=== PATIENT | female | born 1990 | race Two or more races ===

== ENCOUNTER 2024-10-22 09:59 | Emergency (ER) | payer MEDICAID ==
[~2024-10-22] VITALS: Ht 152.4 cm; Wt 81.6 kg
[2024-10-22 10:25] VITALS: TEMP 98.1
[2024-10-22 10:57] LABS: BASOPHILS % (AUTO) 0.4 % (0.0-2.0); EOSINOPHILS # (AUTO) 0.2 K/uL (0.0-0.7); EOSINOPHILS % (AUTO) 2.4 % (0.0-6.0); HEMATOCRIT 36 % (33-45); HEMOGLOBIN 11.9 g/dL (11.5-14.8); LYMPHOCYTES # (AUTO) 1.4 K/uL (0.8-4.8); LYMPHOCYTES % (AUTO) 18.6 % (20.0-44.0); MEAN CORPUSCULAR HEMOGLOBIN 29 PG (26.0-33.0); MEAN CORPUSCULAR HGB CONC 33 g/dl (31.0-36.0); MEAN CORPUSCULAR VOLUME 87 fL (82-100); MONOCYTES # (AUTO) 0.7 K/uL (0.1-1.30); MONOCYTES % (AUTO) 9.1 % (2.0-12.0); NEUTROPHILS # (AUTO) 5.1 K/uL (1.8-8.9); NEUTROPHILS % (AUTO) 69.5 % (43.0-81.0); PLATELET COUNT (AUTO) 274 K/uL (150-450); RED BLOOD CELL COUNT(AUTO) 4.12 MIL/uL (4.0-5.2); RED CELL DISTRIBUTION WIDTH 14.1 % (11.5-15.0); WHITE BLOOD COUNT (AUTO) 7.3 K/uL (4.3-11.0)
[2024-10-22] MEDS: IV NS 0.9% 1,000 ML BAG IV ONE (11:00)
[2024-10-22 11:09] LABS: INR 1.04 (0.91-1.10); PARTIAL THROMBOPLASTIN TIME 24.4 SEC (24.3-34.3); PROTHROMBIN TIME 10.7 SECS (9.2-11.1)
[2024-10-22 11:10] LABS: CALCIUM, SERUM 8.7 mg/dL (8.5-10.1); CREATININE 0.8 mg/dL (0.6-1.3); POTASSIUM 3.9 mmol/L (3.5-5.1)
[2024-10-22 11:16] LABS: ALBUMIN 3.5 g/dL (3.4-5.0); BILIRUBIN,DIRECT 0.1 mg/dL (0.0-0.2); BILIRUBIN,TOTAL 0.5 mg/dL (0.2-1.0); TOTAL PROTEIN, SERUM 7.3 g/dL (6.4-8.2)
[2024-10-22 12:09] LABS: APPEARANCE,URINE CLEAR (CLEAR); BILIRUBIN,URINE Negative (NEGATIVE); BLOOD, URINE Negative Ery/uL (NEGATIVE); COLOR,URINE YELLOW (YELLOW); KETONES,URINE Trace mg/dL (NEGATIVE); LEUKOCYTE ESTERASE ,URINE Negative (NEGATIVE); PH,URINE 7.5 (5.0-8.0); PROTEIN,URINE Trace mg/dl (NEGATIVE); UGLUCOSE Negative (NEGATIVE); UROBILINOGEN,URINE 0.2 EU/dL (0.2)
[2024-10-22 12:11] LABS: NITRITE, URINE NEGATIVE (NEGATIVE)
[2024-10-22 12:16] LABS: ADD URINE CULTURE NO; BACTERIA,URINE Rare /HPF (None Seen); RBC,URINE 0-2 /HPF (0-2); SQUAMOUS EPITHELIAL CELL,UR Many /HPF (None Seen); WBC,URINE 0-2 /HPF (0-3)
[2024-10-22 12:17] LABS: MUCUS,URINE Moderate /LPF (None Seen)
[2024-10-22] MEDS ORDERED: PANT40TA2 PO (12:24)
[2024-10-22 13:10] VITALS: BP 115/76; O2SAT 98
== END 2024-10-22 13:00 | disposition home or self-care (01) ==
LOC: ER 10:06
DX: R10.32 Left lower quadrant pain (principal); R10.13 Epigastric pain; Z87.19 Personal history of other diseases of the digestive system
CPT/HCPCS: 99285; 74176; 96360; 71045; 85025; 80048; 83690; 80076; 84703; 81001; 36415; 85730; J7030

== ENCOUNTER 2024-12-07 19:16 | Emergency (ER) | payer MEDICAID, OTHER ==
[~2024-12-07] VITALS: Ht 154.9 cm; Wt 86.2 kg
[~2024-12-07 19:16] MED LIST: PANT40TA2 PO
[2024-12-07] MEDS ORDERED: ACETAMINOPHEN ES 500 MG TABLET ONE (20:37)
[2024-12-07] MEDS ORDERED: METHOCARBAMOL (500MG) 500 MG TABLET ONE (20:37)
[2024-12-07] MEDS: METHOCARBAMOL (750MG) 750 MG TABLET PO SCH (20:41)
[2024-12-07] MEDS: ACETAMINOPHEN ES 500 MG TABLET PO ONE (20:41)
[2024-12-07] MEDS ORDERED: LIDO30AD10 TP (21:01)
[2024-12-07] MEDS ORDERED: ACET325T53 PO (21:01)
[2024-12-07] MEDS ORDERED: IBUP-76 PO (21:01)
[2024-12-07] MEDS ORDERED: PRED20TA PO (21:01)
[2024-12-07 21:05] LABS: PREGNANCY TEST URINE QUAL NEGATIVE (NEGATIVE)
[2024-12-07] MEDS ORDERED: KETOROLAC TROMETHAMINE INJ 30 MG/ML VIAL ONE (21:09)
[2024-12-07] MEDS: KETOROLAC TROMETHAMINE INJ 30 MG/ML VIAL IM ONE (21:16)
[2024-12-07 21:33] VITALS: BP 119/62; TEMP 98; O2SAT 99
== END 2024-12-07 21:33 | disposition home or self-care (01) ==
LOC: ER 19:25
DX: M54.41 Lumbago with sciatica, right side (principal); F17.200 Nicotine dependence, unspecified, uncomplicated; Z79.899 Other long term (current) drug therapy; Z79.52 Long term (current) use of systemic steroids
CPT/HCPCS: 99283; 96372; 84703; J1885

== ENCOUNTER 2025-03-16 05:43 | Emergency (ER) | payer OTHER ==
[~2025-03-16] VITALS: Ht 152.4 cm; Wt 86.2 kg
[~2025-03-16 05:43] MED LIST changes: +ACET325T53 PO; +IBUP-76 PO; +LIDO30AD10 TP; +PRED20TA PO
[2025-03-16] MEDS: IV NS 0.9% 1,000 ML BAG IV ONE (06:26)
[2025-03-16] MEDS ORDERED: ONDANSETRON HCL/PF 4 MG/2 ML VIAL ONE (06:30)
[2025-03-16] MEDS ORDERED: MORPHINE SULFATE INJ 2 MG/ML DISP.SYRIN ONE (06:30)
[2025-03-16] MEDS ORDERED: FAMOTIDINE/PF INJ 20 MG/2 ML VIAL IV ONE (06:31)
[2025-03-16 06:32] LABS: PLATELET COUNT (AUTO) 265 K/uL (150-450); RED BLOOD CELL COUNT(AUTO) 4.31 MIL/uL (4.0-5.2); RED CELL DISTRIBUTION WIDTH 14.1 % (11.5-15.0); WHITE BLOOD COUNT (AUTO) 15.3 K/uL (4.3-11.0)
[2025-03-16 06:35] LABS: APPEARANCE,URINE SLIGHTLY CLOUDY (CLEAR); BLOOD, URINE 2+ Ery/uL (NEGATIVE); LEUKOCYTE ESTERASE ,URINE 1+ (NEGATIVE); NITRITE, URINE NEGATIVE (NEGATIVE); UGLUCOSE 3+ mg/dL (NEGATIVE)
[2025-03-16 06:36] LABS: PREGNANCY TEST URINE QUAL NEGATIVE (NEGATIVE)
[2025-03-16] MEDS: MORPHINE SULFATE INJ 2 MG/ML DISP.SYRIN IV ONE (06:38)
[2025-03-16] MEDS: FAMOTIDINE/PF INJ 20 MG/2 ML VIAL IV ONE (06:38)
[2025-03-16] MEDS: ONDANSETRON HCL/PF 4 MG/2 ML VIAL IVP ONE (06:38)
[2025-03-16 06:39] LABS: CALCIUM, SERUM 9.5 mg/dL (8.5-10.1); CREATININE 0.8 mg/dL (0.6-1.3); SODIUM SERUM 138.0 mmol/L (136-145); UREA NITROGEN, BLOOD 9.0 mg/dL (7-18)
[2025-03-16 06:45] LABS: ASPARTATE AMINOTRANSFERASE 12.0 U/L (15-37); TOTAL PROTEIN, SERUM 8.1 g/dL (6.4-8.2)
[2025-03-16 06:47] LABS: ADD URINE CULTURE YES
[2025-03-16] MEDS ORDERED: KETOROLAC TROMETHAMINE INJ 30 MG/ML VIAL ONE (08:37)
[2025-03-16] MEDS ORDERED: METOCLOPRAMIDE HCL 10 MG/2 ML VIAL ONE (08:38)
[2025-03-16] MEDS: KETOROLAC TROMETHAMINE INJ 30 MG/ML VIAL IV ONE (08:51)
[2025-03-16] MEDS: METOCLOPRAMIDE HCL 10 MG/2 ML VIAL IV ONE (08:52)
[2025-03-16] MEDS ORDERED: KETO10TA2 PO (09:09)
[2025-03-16] MEDS ORDERED: ONDA4TAB5 PO (09:09)
[2025-03-16] MEDS ORDERED: NITR100C6 PO (09:09)
[2025-03-16 09:23] VITALS: BP 123/68; TEMP 98; O2SAT 99
[2025-03-16] MEDS ORDERED: NITROFURANTOIN/MONOHYDRATE MACROCRYSTALS 100 MG CAPSULE PO ONE (09:30)
== END 2025-03-16 09:29 | disposition home or self-care (01) ==
LOC: ER 05:49
DX: N39.0 Urinary tract infection, site not specified (principal); F31.9 Bipolar disorder, unspecified; Z79.52 Long term (current) use of systemic steroids; Z79.899 Other long term (current) drug therapy; Z87.19 Personal history of other diseases of the digestive system
CPT/HCPCS: 99285; 74176; 96375; 96374; 76856; 96361; 85025; 80048; 87086; 83690; 80076; 84703; 81001; 36415; 84702; J1885; J1200; J1308; J2765; J2405; J7030; J2270